=== PATIENT | male | born 1975 | race Caucasian/White ===

== ENCOUNTER 2019-03-10 19:32 | Emergency (ER) | payer SELFPAY ==
[~2019-03-10] VITALS: Ht 188 cm; Wt 63.5 kg
[2019-03-10 19:36] VITALS: BP 151/100
--- NOTE | 2019-03-10 19:36 | NUR ---
ED Nurse Note: brought in by [facility] for medical clearance. pt states he has unspecified cardiac problems. ao4. nad. vss under [facility] custody
--- NOTE | 2019-03-10 20:00 | Emergency Room Report ---
History of Present Illness General Chief Complaint: Medical Clearance Source: Patient Present Illness HPI Disclaimer: Please note that this report is being documented using DRAGON technology. This can lead to erroneous entry secondary to incorrect interpretation by the dictating instrument. HPI: 43-year-old male presents for evaluation in custody of police for medical clearance prior to booking. The patient noted that he has a longstanding heart murmur and was treated for tuberculosis over 20 years ago. He states he remaining tuberculoma is but no active tuberculosis. Denies any shortness of breath, cough, night sweats or other respiratory symptoms. He reports some tachycardia but he is very agitated at this time and states this is secondary to his anxiety. Denies chest pain or pressure. Denies abdominal pain, nausea, vomiting, fever, chills, diarrhea. PMH: Prediabetic PSH: Denies Allergies: Denies Social Hx: Denies alcohol, tobacco or drug use Allergies: Coded Allergies: No Known Allergies (Unverified , 03/10/19) Nursing Documentation-PMH Past Medical History: No History, Except For Hx Cardiac Problems: Yes Review of Systems All Other Systems: negative except mentioned in HPI Physical Exam Vital Signs Date Time Temp Pulse Resp B/P (MAP) Pulse Ox O2 Delivery O2 Flow Rate FiO2 03/10/19 19:36 99.1 134 14 151/100 (117) 97 Room Air General: Awake and alert, no acute distress HEENT: NC/AT. EOMI. Cardiovascular: Tachycardic. S1 and S2 normal. No murmur appreciated Resp: Normal work of breathing. No cough, wheezing or crackles appreciated Abdomen: Abdomen is soft, nondistended. Nontender MSK: Normal tone and bulk. Moving all extremities. No obvious deformity. Neuro: Awake and alert. Mentating appropriately. Medical Decision Making Diagnostic Impression: Primary Impression: Medical clearance for incarceration ER Course 43-year-old male history of prediabetes and treatment of tuberculosis over 20 years ago in [place] with persistent tuberculoma is presents for medical evaluation prior to booking. He is in no acute distress. He does note anxiety and agitation consistent with his tachycardia. He denies chest pain. States he has had the tuberculum was for over 20 years and does not require treatment for them. Otherwise he denies chest pain or other complaints at this time. He seems frustrated, angrily pacing around. His EKG was nonischemic though did show sinus tachycardia. Believe this is secondary to his emotional state at this time and he reports anxiety. I hear no murmur on my exam and patient's lungs are clear. He has no sign of active tuberculosis was treated over 23 years ago. Do not believe he requires emergent labs or imaging at this time. Patient is medically cleared for booking. Can return with any new or worsening symptoms. EKG Diagnostic Results EKG Time: 20:06 Rate: tachycardiac Rhythm: NSR ST Segments: no acute changes Other Impression Sinus tachycardia, normal axis, normal intervals, no ST segment changes. Rhythm Strip Diag. Results Rhythm Strip Time: 20:06 EP Interpretation: yes Rate: 120s Rhythm: NSR, no PVC's, no ectopy Last Vital Signs Date Time Temp Pulse Resp B/P (MAP) Pulse Ox O2 Delivery O2 Flow Rate FiO2 03/10/19 19:36 99.1 134 14 151/100 (117) 97 Room Air Disposition: D/C TO LAW ENFORCEMENT IN CUST Condition: Stable Scripts Unable to Obtain Active Prescriptions or Reported Meds Axel Guzman MD Mar 10, 2019 20:00
--- NOTE | 2019-03-10 20:20 | NUR ---
ER DISCHARGE NOTE: Patient is cleared to be discharged per ERMD, pt is aox4, on room air, with stable vital signs. under [facility] custody. pt was given dc and prescription instructions, pt was able to verbalize understanding, pt id band removed. pt is able to ambulate with steady gait. pt took all belongings.
[2019-03-10 23:59] VITALS: BP 151/100
== END 2019-03-10 20:20 ==
LOC: EMR 19:55
DX: R00.0 Tachycardia, unspecified (principal); R73.03 Prediabetes; R45.1 Restlessness and agitation; F41.9 Anxiety disorder, unspecified
CPT/HCPCS: 93005; 99283